=== PATIENT | female | born 1990 | race Two or more races ===

== ENCOUNTER 2019-01-04 05:34 | Inpatient (IN) | payer OTHER ==
[~2019-01-04] VITALS: Ht 170.2 cm; Wt 57.0 kg
[~2019-01-04 05:34] MED LIST: BENADRYL25 MG PO; CHLORDIAZEPOXI1 EACH PO; DICY20TA; MAXFE CAPLET1 EACH PO; MULTIPLE VITAM1 EACH PO; [UNRECOGNIZED DRUG - OTHER] PO
[2019-01-05] MEDS ORDERED: CHLORPHENIRAMINE4 M1 PO (08:13)
[2019-01-05] MEDS ORDERED: PERCOCET 5-3251 EACH PO (12:25)
[2019-01-05] MEDS ORDERED: COLACE100 MG PO (12:26)
[2019-01-05] MEDS ORDERED: NEURONTIN300 MG PO (12:26)
== END 2019-01-05 15:09 | disposition home or self-care (01) | DRG 358 ==
LOC: CIR.AMB 05:34 → EDSTATUS 07:00 → OB/GYN 07:00 → CIR.AMB 07:00 → O/R 16:18 → SURG 16:18
PROVIDERS: ADMIT Surgery
PROC: 07TP4ZZ Resection of Spleen, Percutaneous Endoscopic Approach (ICD-10-PCS; principal; 2019-01-04 09:30)
DX: D13.9 Benign neoplasm of ill-defined sites within the digestive system (principal); Z90.81 Acquired absence of spleen; R16.1 Splenomegaly, not elsewhere classified

== ENCOUNTER 2022-08-18 07:52 | Outpatient (CLI) | payer OTHER ==
[~2022-08-18 07:52] MED LIST changes: +CHLORPHENIRAMINE4 M1 PO; +COLACE100 MG PO; +NEURONTIN300 MG PO; +PERCOCET 5-3251 EACH PO
== END 2022-08-18 08:09 | disposition home or self-care (01) ==
LOC: RX STUDY 07:52
PROVIDERS: ATTEND Otolaryngology
DX: R13.12 Dysphagia, oropharyngeal phase (principal); K21.9 Gastro-esophageal reflux disease without esophagitis